=== PATIENT | female | born 1985 | race African-American/Black ===

== ENCOUNTER 2017-07-13 12:45 | Emergency (ER) | payer BC, MEDICAID ==
[~2017-07-13] VITALS: Ht 152.4 cm; Wt 60.0 kg
[2017-07-13 13:11] VITALS: BP 110/72
== END 2017-07-13 16:34 | disposition left against medical advice (07) ==
LOC: ER 16:13
DX: Z53.21 Procedure and treatment not carried out due to patient leaving prior to being seen by health care provider (principal)